=== PATIENT | female | born 1995 ===

== ENCOUNTER → 2022-09-05 | Outpatient (CLI) ==
[~2022-09-05] MED LIST: CIPR500T21 PO; IBUP200C11 PO; NORG1TAB14 PO; OMG1KC PO; SULF1TAB38 PO
== END ==
LOC: LABNPT 11:21
PROVIDERS: ATTEND Nurse Practitioner Women's Health
DX: O13.9 Gestational [pregnancy-induced] hypertension without significant proteinuria, unspecified trimester (principal); Z3A.00 Weeks of gestation of pregnancy not specified
CPT/HCPCS: 82570; 84156

== ENCOUNTER → 2022-09-24 | Outpatient (CLI) | LOC: LABNPT 12:24 | PROVIDERS: ATTEND Obstetrics & Gynecology | DX: O13.9 Gestational [pregnancy-induced] hypertension without significant proteinuria, unspecified trimester (principal); Z3A.00 Weeks of gestation of pregnancy not specified | CPT/HCPCS: 82570; 84156 ==

== ENCOUNTER → 2022-09-28 | Outpatient (CLI) | LOC: LABNPT 11:40 | PROVIDERS: ATTEND Obstetrics & Gynecology | DX: O13.9 Gestational [pregnancy-induced] hypertension without significant proteinuria, unspecified trimester (principal); Z3A.00 Weeks of gestation of pregnancy not specified | CPT/HCPCS: 82570; 84156 ==

== ENCOUNTER 2022-10-02 02:48 | Inpatient (IN) | payer OTHER ==
[2022-10-02] VITALS (75 sets, daily range): BP systolic 132–187; BP diastolic 70–106
[~2022-10-02] VITALS: Ht 162.6 cm; Wt 154.8 kg
--- NOTE | 2022-10-02 07:28 | History & Physical-OB ---
OB - Chief Complaint & HPI Date/Time Date of Admission: Date of Admission: October 02, 2022 at 07:23 Date seen by a Provider: October 02, 2022 Time Seen by a Provider: 07:25 Chief Complaint/History OB-Reason for Admission/Chief: Induction of Labor Hx : 1 Hx Para: 0 Expected Date of Delivery: Oct 20, 2022 Gestational Age in Weeks: 37 Gestational Age in Days: 3 Admission Nurse Assessment Rev: Yes History of Labs A pos antibody neg RI RPR NR HBsAg NR HIV NR GC neg GBS neg U/P ratio 0.3 Allergies and Home Medications Allergies Coded Allergies: No Known Drug Allergies (Unverified , 09/06/22) Patient Home Medication List Home Medication List Reviewed: Yes Ciprofloxacin/Ciprofloxa HCl (Ciprofloxacin ER 500 mg Tablet) 500 Mg Tbmp.24hr, 500 MG PO BID Prescribed by: KIMI JUAREZ on 09/18/15 1019 Ibuprofen (Advil) 200 Mg Capsule, 400-600 MG PO TID PRN for PAIN, (Reported) Entered as Reported by: MYRANDA GILLESPIE on 09/16/15 0820 Norgestimate-Ethinyl Estradiol (Sprintec 28 Day Tablet) 1 Each Tablet, 1 TAB PO HS, (Reported) Entered as Reported by: MARIE RAJAN on 09/16/15 0257 Tougaloo 3 Polyunsat Fatty Acids (Fish Oil 1,000 mg Capsule) 1,000 Mg Cap, 2,000 MG PO HS, (Reported) Entered as Reported by: MYRANDA GILLESPIE on 09/16/15 0820 Sulfamethoxazole/Trimethoprim (Bactrim Ds Tablet) 1 Each Tablet, 1 TAB PO DAILY PRN for ACNE, (Reported) Entered as Reported by: MYRANDA GILLESPIE on 09/16/15 0820 OB - History Hx of Present Care: Yes Ultrasounds: Normal mid trimester US Obstetrical Complications: Pre-eclampsia Medical Complications: None Delivery History Hx Blood Disorders: No Patient Past Medical History bmi >35 OB - Admission Exam Physical Exam HEENT: NCAT Heart: Rhythm Normal Lungs: Clear Abdomen: Gravid Extremities: Normal Reflexes: Normal Cervical Dilatation: 2cm Effacement: 75% Station: -1 Membranes: Intact Heart Rate: 130's Accelerations: Accelerations Present Decelerations: No Decelerations Short Term Variability: Present Field Operations Supervisor Variability: Average (6-25) Contractions on Admission: 6-10 Minutes Apart Intensity: Mild OB - Assessment/Plan/Diagnosis Assessment Assessment: induction of labor Admission Dx 27 yo @ 37 weeks Mild PreE GBS neg Admission Status: Inpatient Order (span 2 midnights) Reason for Inpatient Admission: IOL at 37 weeks Plan Plan: Induction Induction Method: MANJIT NYE DO October 02, 2022 07:28
[2022-10-02] MEDS ORDERED: MINERAL OIL 30 ML UDC TOP PRN (09:30)
[2022-10-02] MEDS ORDERED: LIDOCAINE/EPI 2% 1:200,00 (XYLOCAINE) 10 ML VIAL INJ PRN (09:30)
[2022-10-02 09:39] LABS: CLARITY,URINE CLEAR; COLOR,URINE YELLOW
[2022-10-02 09:40] LABS: BASOPHILS % (AUTO) 0 % (0-10); BILIRUBIN,URINE NEGATIVE (NEGATIVE); GLUCOSE, URINE (UA) NEGATIVE (NEGATIVE); KETONES,URINE NEGATIVE (NEGATIVE); LEUKOCYTE ESTERASE ,URINE NEGATIVE (NEGATIVE); NITRITE,URINE NEGATIVE (NEGATIVE); PROTEIN,URINE TRACE (NEGATIVE)
[2022-10-02 09:41] LABS: EOSINOPHILS # (AUTO) 0.1 10^3/uL (0.0-0.3); EOSINOPHILS % (AUTO) 1 % (0-10); HEMATOCRIT 37 % (35-52); HEMOGLOBIN 11.9 g/dL (11.5-16.0); LYMPHOCYTES # (AUTO) 2.2 10^3/uL (1.0-4.0); LYMPHOCYTES % (AUTO) 19 % (12-44); MEAN CORPUSCULAR HEMOGLOBIN 28 pg (25-34); MEAN CORPUSCULAR HGB CONC 32 g/dL (32-36); MEAN CORPUSCULAR VOLUME 88 fL (80-99); MEAN PLATELET VOLUME 10.7 fL (9.0-12.2); MONOCYTES # (AUTO) 0.6 10^3/uL (0.0-1.0); MONOCYTES % (AUTO) 5 % (0-12); NEUTROPHILS # (AUTO) 8.6 10^3/uL (1.8-7.8); NEUTROPHILS % (AUTO) 75 % (42-75); PLATELET COUNT 292 10^3/uL (130-400); WHITE BLOOD COUNT 11.5 10^3/uL (4.3-11.0)
[2022-10-02 09:42] LABS: POTASSIUM 4.5 MMOL/L (3.6-5.0)
[2022-10-02 09:43] LABS: CALCIUM 9.6 MG/DL (8.5-10.1); SMEAR SCAN COMMENT YES
[2022-10-02 09:44] LABS: TOTAL PROTEIN 6.8 GM/DL (6.4-8.2)
[2022-10-02 09:46] LABS: BILIRUBIN,TOTAL 0.2 MG/DL (0.1-1.0)
[2022-10-02 09:48] LABS: CREATININE SERUM 0.69 MG/DL (0.60-1.30)
[2022-10-02 09:51] LABS: URIC ACID 5.5 MG/DL (2.6-7.2)
[2022-10-02] MEDS ORDERED: OXYTOCIN PRE-MIX DRIP 500 ML IV ONE (09:51)
[2022-10-02] MEDS ORDERED: OXYTOCIN PRE-MIX DRIP 500 ML IV SCH (10:00)
[2022-10-02 10:03] LABS: BACTERIA,URINE MODERATE /HPF; HYALINE CASTS, URINE RARE /LPF; WBC,URINE 0-2 /HPF
[2022-10-02] MEDS: D5 LR IV SOLUTION 1,000 ML IV SCH ×2 (10:09→17:04)
[2022-10-02] MEDS ORDERED: CATHETER FLUSH 10 ML SYR IV SCH ×2 (14:00→22:00)
[2022-10-02] MEDS ORDERED: fentaNYL 2 mcg/ml BUPIVA 0.125 100 ML ONE (14:51)
[2022-10-02] MEDS ORDERED: fentaNYL INJ 100 MCG/2 ML AMP ONE ×2 (15:59→21:02)
[2022-10-02] MEDS ORDERED: BUPIVACAINE 0.25% 10 ML (SENSORCAINE) VIAL ONE (16:00)
[2022-10-02] MEDS ORDERED: NALOXONE 0.4 MG/ML 1 ML (NARCAN) VIAL IV PRN ×2 (16:45→21:15)
[2022-10-02] MEDS ORDERED: ONDANSETRON 4 MG/2 ML (SDV) Z0FRAN IV PRN (16:45)
[2022-10-02] MEDS ORDERED: fentaNYL 2 mcg/ml BUPIVA 0.125 100 ML EPI SCH (16:45)
[2022-10-02] MEDS ORDERED: diphenhydrAMINE 50 MG/ML INJ (BENADRYL) IV PRN (16:45)
[2022-10-02] MEDS ORDERED: LACTATED RINGERS 1,000 ML IV SCH (16:45)
[2022-10-02] MEDS ORDERED: LIDOCAINE 2% 20 ML (XYLOCAINE) VIAL INJ ONE (17:15)
[2022-10-02] MEDS ORDERED: MAGNESIUM SULFATE DRIP 500 ML IV ONE (19:43)
[2022-10-02] MEDS ORDERED: MAGNESIUM 2 GM/50 ML IVPB 50 ML IV ONE (19:43)
[2022-10-02] MEDS ORDERED: MAGNESIUM 4 GM/100 ML IVPB 100 ML IV ONE (19:43)
[2022-10-02] MEDS ORDERED: MAGNESIUM 2 GM/50 ML IVPB 2 GM in MAGNESIUM 4 GM/100 ML IVPB 100 ML IV ONE (19:45)
[2022-10-02] MEDS ORDERED: CALCIUM GLUC. 10% 4.65 MEQ/10 ML VIAL IV SCH (19:45)
[2022-10-02] MEDS: MAGNESIUM SULFATE DRIP 500 ML IV SCH (20:26)
[2022-10-02] MEDS ORDERED: CITRIC ACID/SOB CIT (BICITRA) 30 ML UDC ONE (20:32)
[2022-10-02] MEDS ORDERED: ceFAZolin INJECTION 2,000 MG ONE (20:32)
[2022-10-02] MEDS ORDERED: METOCLOPRAMIDE INJ 10 MG/2 ML (REGLAN) ONE (20:32)
[2022-10-02] MEDS ORDERED: FAMOTIDINE 20MG/2ML IV (PEPCID) ONE (20:33)
[2022-10-02] MEDS ORDERED: NS (IVPB) 50 ML ONE (20:38)
[2022-10-02] MEDS ORDERED: METOCLOPRAMIDE INJ 10 MG/2 ML (REGLAN) IV ONE (20:45)
[2022-10-02] MEDS ORDERED: CITRIC ACID/SOB CIT (BICITRA) 30 ML UDC PO ONE (20:45)
[2022-10-02] MEDS ORDERED: CATHETER FLUSH 10 ML SYR IV PRN (20:45)
[2022-10-02] MEDS ORDERED: FAMOTIDINE 20MG/2ML IV (PEPCID) IV ONE (20:45)
[2022-10-02] MEDS ORDERED: ceFAZolin INJECTION 2,000 MG in NS (IVPB) 50 ML IV ONE (20:45)
[2022-10-02] MEDS ORDERED: LACTATED RINGERS 1,000 ML IV ONE (21:02)
--- NOTE | 2022-10-02 21:02 | Progress Note ---
Standard Progress Note Progress Notes/Assess & Plan Date Seen by a Provider: October 02, 2022 Time Seen by a Provider: 20:35 Progress/Assessment & Plan Patient BP increased and began having some spasms in muscles about 193, so I presented to evaluate patient after I had ordered starting MgSO4 infusion. She, at that point no longer had any further symptoms like she had previously described to the nurse, however I evaluated her myself and found no clonus, 2/4 reflexes bilaterally in LE. +2-3 pitting edema. o2 sat 99%. BP was 170s/90. Due to concerns with BP elevations now, despite comfort with epidural, SVE was done and no change noted over past 6 hrs of pitocin augmentation. Due to arrest of dilatation, and worsening signs of PreE I discussed with patient proceeding with delivery which she was agreeable to do. Risk reviewed with patient in detail with family present. All questions were answered and will proceed once OR staff arrives. MANJIT CARDOZO DO October 02, 2022 21:02
[2022-10-02] MEDS ORDERED: BUPIVACAINE 0.5% 30 ML (SENSORCAINE) VIAL ONE (21:03)
[2022-10-02] MEDS ORDERED: LIDOCAINE PF 2% 5 ML (XYLOCAINE) VIAL ONE (21:03)
[2022-10-02] MEDS ORDERED: ONDANSETRON 4 MG/2 ML (SDV) Z0FRAN IVP PRN (21:15)
[2022-10-02] MEDS ORDERED: TETANUS,DIPTH,PERTUSS P/F (BOOSTRIX) 0.5 ML VIAL IM SCH (21:15)
[2022-10-02] MEDS ORDERED: MEASLES,MUMPS,RUBELLA 1 EA INJ SC SCH (21:15)
[2022-10-02] MEDS ORDERED: ONDANSETRON 4 MG/2 ML (SDV) Z0FRAN ONE (21:35)
[2022-10-02] MEDS ORDERED: OXYTOCIN PRE-MIX DRIP 1,000 ML IV ONE (21:50)
[2022-10-02] MEDS ORDERED: LABETALOL 200 MG (NORMODYNE) TAB PO ONE (22:30)
[2022-10-02] MEDS: OXYTOCIN PRE-MIX DRIP 500 ML IV SCH (23:10)
[2022-10-02] MEDS: KETOROLAC 30 MG/ML VIAL IV SCH (23:26)
[2022-10-03] VITALS (13 sets, daily range): BP systolic 103–158; BP diastolic 51–101
[2022-10-03] MEDS: HYDROcodone/APAP 5 MG/325 MG (LORTAB) TAB PO PRN ×4 (01:08→20:53)
[2022-10-03] MEDS: OXYTOCIN PRE-MIX DRIP 500 ML IV SCH (01:51)
--- NOTE | 2022-10-03 02:51 | OPERATIVE REPORT ---
PREOPERATIVE DIAGNOSES: 1. A 27-year-old G1, P0 at 37 weeks and 3 days gestation. 2. Preeclampsia with severe features. 3. Failure to progress and arrest of dilation. POSTOPERATIVE DIAGNOSES: 1. A 27-year-old G1, P0 at 37 weeks and 3 days gestation. 2. Preeclampsia with severe features. 3. Failure to progress and arrest of dilation. PROCEDURE: Primary low transverse section. SURGEON: Kevin Cardozo DO ANESTHESIA: Epidural, which was bolused. ESTIMATED BLOOD LOSS: 400 mL. URINE OUTPUT: 200 mL clear at the end of the procedure. FLUIDS: 800 mL of lactated Ringer's solution. FINDINGS: A live male weighing 6 pounds and 9 ounces and Apgars of 8 and 10. Grossly normal appearing uterus, bilateral fallopian tubes and ovaries. SPECIMEN SENT: Placenta. INDICATIONS FOR PROCEDURE: This 27-year-old female patient who had sought care in my office, it was uncomplicated with the exception of late onset preeclampsia at approximately 36 weeks. She was managed at 37 weeks', remained mild induced at 37 weeks due to preeclampsia. At induction, her blood pressures continued to worsen despite magnesium infusion, they continued to elevate into the severe criteria. She also made little to no cervical exchange administrator 6-hour period of adequate Pitocin augmentation. Due to arrest of dilation, I discussed with the patient proceeding with . Risks of the procedure were discussed with the patient in detail and after all of her questions were answered with family present, consent was obtained, the patient was taken to the operating room. OPERATIVE DESCRIPTION IN DETAIL Once in the operating room, epidural analgesia was bolused and found to be adequate. She was placed in the supine position with leftward tilt, prepped and draped in normal sterile fashion. A timeout was performed. Anesthesia was tested and then make a Pfannenstiel skin incision with a knife and carried to underlying fascia using Bovie cautery. The fascial incision extended laterally using Bovie cautery. Superior aspect of fascial incision was then grasped with Elizabeth clamps, tented up and dissected off the underlying rectus muscles. The inferior aspect of the fascial incision was then grasped with Elizabeth clamps, tented up and dissected off the underlying rectus muscles. Rectus muscles were dissected down the midline sharply, which exposed the peritoneum, which entered bluntly and extended using blunt traction. Addi ring retractor was placed in the peritoneal incision, which offers excellent lateral sidewall retraction. I identified lower uterine segment was found to be thinned out. I make a low transverse incision to the vesicouterine peritoneum and bluntly dissected this off the lower uterine segment, creating a bladder flap. I then proceeded my myotomy until membranes were visualized, at which point I extended uterine incision laterally and superiorly using bandage scissors. Amniotomy was then performed. Clear fluid was still noted. was found in vertex presentation. With gentle fundal pressure, the infant's head was elevated and delivered through the incision where the nares and oropharynx were bulb suctioned. Nuchal cord was reduced x1. Anterior and posterior shoulders were delivered. The was brought to the operative field where cord was doubly clamped and cut and infant handed off to waiting nurses in attendance. Cord blood collected. Three-vessel cord with intact placenta was delivered spontaneously thereafter. IV Pitocin was initiated to facilitate uterine contraction. Uterine fundus confirmed by bimanual massage. The uterus was then exteriorized and cleared of all endometrial clots and debris. I then proceeded to closing the uterine incision using 0 Vicryl suture in a running locked fashion. Second layer of imbricating 0 Monocryl was placed. Excellent hemostasis was noted after doing this, I then placed the uterus back in the pelvis and copiously irrigated the pelvis using normal saline. Once again, there was no active bleeding noted from any of my dissection planes. I placed Interceed antiadhesive over my low transverse incision. I removed the Addi ring retractor and then proceeded with closing the peritoneum using 3-0 Vicryl suture in a running fashion. The rectus muscles were reapproximated using 3-0 Vicryl suture in interrupted fashion. The fascia was reapproximated using 0 Vicryl suture in a running fashion. The subcutaneous tissue was reapproximated using 3-0 plain interrupted subcutaneous stitch and skin reapproximated using 4-0 Monocryl in a running subcuticular. Dermabond was applied to incision, sterile dressing with adhesive white tape. The patient tolerated the procedure well and sent to recovery area in stable condition. Lap and sponge counts were correct at the end of the procedure. Instrument counts were correct as well. Job ID: [id number] DocumentID: [id number] Dictated Date: 10/02/2022 22:04:46 Manager Labor Delivery Date: 10/03/2022 02:49:00 Dictated By: KEVNI CARDOZO DO
[2022-10-03] MEDS: KETOROLAC 30 MG/ML VIAL IV SCH ×3 (05:01→17:34)
[2022-10-03] MEDS: MAGNESIUM SULFATE DRIP 500 ML IV SCH (05:41)
[2022-10-03 06:03] LABS: BASOPHILS # (AUTO) 0.1 10^3/uL (0.0-0.1); BASOPHILS % (AUTO) 0 % (0-10); EOSINOPHILS % (AUTO) 0 % (0-10); HEMATOCRIT 29 % (35-52); HEMOGLOBIN 9.5 g/dL (11.5-16.0); LYMPHOCYTES # (AUTO) 1.8 10^3/uL (1.0-4.0); LYMPHOCYTES % (AUTO) 13 % (12-44); MEAN CORPUSCULAR HEMOGLOBIN 28 pg (25-34); MEAN CORPUSCULAR HGB CONC 32 g/dL (32-36); MEAN CORPUSCULAR VOLUME 88 fL (80-99); MONOCYTES # (AUTO) 0.9 10^3/uL (0.0-1.0); MONOCYTES % (AUTO) 6 % (0-12); NEUTROPHILS # (AUTO) 11.6 10^3/uL (1.8-7.8); NEUTROPHILS % (AUTO) 80 % (42-75); PLATELET COUNT 280 10^3/uL (130-400); WHITE BLOOD COUNT 14.5 10^3/uL (4.3-11.0)
--- NOTE | 2022-10-03 08:25 | Postpartum Progress Note ---
Note Note Day # 1 Subjective: Patient is still on MgSO4 with sequelae from this but otherwise doing ok. Catheter is still in place. Tolerating a clear diet without nausea or vomiting. Normal lochia. Pain is well controlled with oral pain medications. Objective: Physical Exam: General - Alert and oriented, no apparent distress Abdomen - Soft, appropriately tender to palpation, non-distended, fundus firm at umbilicus Extremities - no edema, negative Reuben's bilaterally Incision- c/d/i Assessment: POD 1 PLTCS Acute blood loss anemia PreE- peripartum recovering BMI > 50 Plan: Routine care. DVT prophylaxis with lovenox Encourage breast feeding. Encourage ambulation. Ferrous sulfate supplementation. Plan for discharge tomorrow if BP remains controlled and patient stable Vitals - Labs Vital Signs - I&O Vital Signs Date Time Temp Pulse Resp B/P (MAP) Pulse Ox O2 Delivery O2 Flow Rate FiO2 10/03/22 08:00 79 18 129/74 (92) 97 Room Air 10/03/22 07:00 87 18 129/76 (93) 97 Room Air 10/03/22 06:00 87 18 130/78 (95) 98 Room Air 10/03/22 05:00 36.4 86 18 120/73 (89) 97 Room Air 10/03/22 04:42 87 18 124/76 (92) 98 Room Air 10/03/22 03:00 90 18 126/80 (95) 98 Room Air 10/03/22 02:00 80 20 119/77 (91) 97 Room Air 10/03/22 01:00 87 20 103/56 (72) 97 Room Air 10/03/22 00:00 98 20 158/101 (120) 97 Room Air 10/02/22 23:17 90 20 166/104 (124) 97 Room Air 10/02/22 23:10 Room Air 10/02/22 23:10 36.3 20 158/88 (111) 98 Room Air 10/02/22 23:00 20 149/92 (111) 98 Room Air 10/02/22 23:00 Room Air 10/02/22 22:50 20 151/96 (114) 98 Room Air 10/02/22 22:45 Room Air 10/02/22 22:40 20 148/96 (113) 98 Room Air 10/02/22 22:30 Room Air 10/02/22 22:30 20 148/85 (106) 98 Room Air 10/02/22 22:20 20 155/82 (106) 98 Room Air 10/02/22 22:14 Room Air 10/02/22 22:14 36.3 20 156/84 (108) 98 Room Air 10/02/22 21:15 96 20 160/80 (106) Room Air 10/02/22 21:10 93 20 173/88 (116) 96 Room Air 10/02/22 21:05 93 20 157/84 (108) 97 Room Air 10/02/22 21:00 88 20 150/81 (104) 98 Room Air 10/02/22 20:55 97 20 155/85 (108) 98 Room Air 10/02/22 20:51 96 20 141/89 (106) 98 Room Air 10/02/22 20:45 95 20 185/105 (131) 98 Room Air 10/02/22 20:40 99 20 174/90 (118) 97 Room Air 10/02/22 20:35 93 20 175/91 (119) 98 Room Air 10/02/22 20:30 93 20 176/100 (125) 98 Room Air 10/02/22 20:25 91 20 176/91 (119) 98 Room Air 10/02/22 20:20 96 20 176/91 (119) 98 Room Air 10/02/22 20:15 101 20 175/90 (118) 98 Room Air 10/02/22 20:10 98 20 176/98 (124) 98 Room Air 10/02/22 20:02 98 20 174/100 (124) 98 Room Air 10/02/22 19:48 93 20 171/99 (123) 99 Room Air 10/02/22 19:35 86 20 175/100 (125) 98 Room Air 10/02/22 19:33 86 20 168/85 (112) 99 Room Air 10/02/22 19:17 82 20 154/93 (113) 99 Room Air 10/02/22 19:02 87 20 151/88 (109) 98 Room Air 10/02/22 18:47 82 20 145/87 (106) 98 Room Air 10/02/22 18:30 80 20 158/88 (111) 98 Room Air 10/02/22 18:15 92 20 149/78 (101) 98 Room Air 10/02/22 18:00 75 20 156/80 (105) 96 Room Air 10/02/22 17:45 88 20 155/78 (103) 96 Room Air 10/02/22 17:30 93 20 152/76 (101) 97 Room Air 10/02/22 17:15 95 20 165/84 (111) 98 Room Air 10/02/22 17:00 36.6 104 20 153/85 (107) 97 Room Air 10/02/22 16:54 90 20 153/83 (106) 97 Room Air 10/02/22 16:51 92 20 162/85 (110) 98 Room Air 10/02/22 16:48 98 20 167/93 (117) 98 Room Air 10/02/22 16:46 98 Room Air 10/02/22 16:45 36.7 90 20 166/88 (114) 98 Room Air 10/02/22 16:41 90 20 166/99 (121) 98 Room Air 10/02/22 16:39 96 20 168/101 (123) 97 Room Air 10/02/22 16:36 75 20 169/97 (121) 97 Room Air 10/02/22 16:33 83 20 164/95 (118) 97 Room Air 10/02/22 16:30 85 20 177/104 (128) 99 Room Air 10/02/22 16:26 81 20 182/106 (131) 99 Room Air 10/02/22 16:15 82 20 183/95 (124) 98 Room Air 10/02/22 16:00 76 20 172/92 (118) 98 Room Air 10/02/22 15:45 36.7 70 20 187/91 (123) 98 Room Air 10/02/22 15:30 84 20 175/100 (125) 99 Room Air 10/02/22 15:15 75 20 173/88 (116) 99 Room Air 10/02/22 15:00 85 20 143/80 (101) 98 Room Air 10/02/22 14:45 89 20 176/92 (120) 98 Room Air 10/02/22 14:30 102 20 165/104 (124) 99 Room Air 10/02/22 14:15 102 20 165/104 (124) 99 Room Air 10/02/22 14:00 82 20 144/70 (94) 98 Room Air 10/02/22 13:45 87 20 147/89 (108) 98 Room Air 10/02/22 13:30 87 20 147/89 (108) 98 Room Air 10/02/22 13:15 92 20 140/79 (99) 98 Room Air 10/02/22 13:00 80 20 140/79 (99) 98 Room Air 10/02/22 12:45 80 20 142/82 (102) 97 Room Air 10/02/22 12:30 86 20 132/75 (94) 98 Room Air 10/02/22 12:15 89 20 148/80 (102) 97 Room Air 10/02/22 11:45 84 20 153/84 (107) 98 Room Air 10/02/22 11:30 36.4 97 20 139/90 (106) 98 Room Air 10/02/22 11:15 85 20 161/98 (119) 98 Room Air 10/02/22 11:00 88 20 167/96 (119) 97 Room Air 10/02/22 10:30 36.4 87 20 162/94 (116) 97 Room Air 10/02/22 10:15 88 20 158/91 (113) 98 Room Air 10/02/22 09:45 86 20 158/92 (114) 97 Room Air 10/02/22 09:15 86 20 140/83 (102) Room Air 10/02/22 08:45 86 20 143/86 (105) 99 Room Air 10/02/22 08:30 36.9 101 18 99 Room Air I & O 10/03/22 07:00 Intake Total 2300 ml Output Total 875 ml Balance 1425 ml Labs Laboratory Tests 10/03/22 05:51: White Blood Count 14.5H, Red Blood Count 3.35L, Hemoglobin 9.5#L, Hematocrit 29L , Mean Corpuscular Volume 88, Mean Corpuscular Hemoglobin 28, Mean Corpuscular Hemoglobin Concent 32, Red Cell Distribution Width 14.9H, Platelet Count 280, Mean Platelet Volume 10.0, Immature Granulocyte % (Auto) 1, Neutrophils (%) (Auto) 80H, Lymphocytes (%) (Auto) 13, Monocytes (%) (Auto) 6, Eosinophils (%) (Auto) 0, Basophils (%) (Auto) 0, Neutrophils # (Auto) 11.6H, Lymphocytes # (Auto) 1.8, Monocytes # (Auto) 0.9, Eosinophils # (Auto) 0.0, Basophils # (Auto) 0.1, Immature Granulocyte # (Auto) 0.1 MANJIT CARDOZO DO October 03, 2022 08:25
[2022-10-03] MEDS: LABETALOL 200 MG (NORMODYNE) TAB PO SCH ×3 (09:08→22:32)
[2022-10-03] MEDS: METOCLOPRAMIDE 10 MG (REGLAN) TAB PO SCH ×5 (09:08→22:41)
[2022-10-03] MEDS: ENOXAPARIN 60 MG/0.6 ML (LOVENOX) SYR SC SCH ×2 (10:37→22:32)
[2022-10-03] MEDS: DOCUSATE SODIUM 100 MG (COLACE) CAP PO SCH ×2 (10:54→20:53)
[2022-10-03] MEDS: IBUPROFEN 600 MG (MOTRIN) TAB PO SCH (22:41)
[2022-10-04 03:47] VITALS: BP 120/73
[2022-10-04] MEDS: METOCLOPRAMIDE 10 MG (REGLAN) TAB PO SCH ×3 (03:47→16:48)
[2022-10-04] MEDS: HYDROcodone/APAP 5 MG/325 MG (LORTAB) TAB PO PRN ×3 (03:47→16:48)
[2022-10-04] MEDS: IBUPROFEN 600 MG (MOTRIN) TAB PO SCH ×3 (03:47→16:48)
--- NOTE | 2022-10-04 07:20 | Discharge Inst-Women's Service ---
Discharge Inst-Women's Serv Depart Medication/Instructions New, Converted or Re-Newed RX: Transmitted to Pharmacy Final Diagnosis POD 2 PLTCS PreEclampsia Acute blood loss anemia Problems Reviewed?: Yes Consults/Follow Up Additional Follow Up: Yes Orders/Referrals Dr. Fortune in 7-10 days and in 6 weeks Activity Activity: Activity as Tolerated Driving Instructions: No Driving for 1 Week NO SMOKING: NO SMOKING Nothing Inside Vagina: No Douching, No [place], No Tampons Diet Discharge Diet: No Restrictions Symptoms to Report to : Bleeding Excessive, Pain Increased, Fever Over 101 Degrees F, Vaginal Bleeding Increase, Questions/Concerns For Any Problems or Questions: Contact Your Physician Skin/Wound Care Infection Signs and Symptoms: Increased Redness, Foul Odor of Wound, Increased Drainage, Skin Itchy or Has a Rash, Increased Swelling, Temperature Above 101 F Operative Area Clean and Dry: Keep Incision Clean/Dry Stitches/Compa/Dermabond: Dermabond, Care of Stitches Bathing Instructions: MANJIT Newell DO Oct 04, 2022 07:20
[2022-10-04] MEDS ORDERED: ACHD5005 PO (07:22)
[2022-10-04] MEDS ORDERED: DOCU100C37 PO (07:22)
[2022-10-04] MEDS ORDERED: IBUP-844 PO (07:22)
[2022-10-04] MEDS ORDERED: LABE200T10 PO (07:22)
--- NOTE | 2022-10-04 07:37 | Anesthesia-Regional Post-Op ---
Regional Patient Condition Mental Status: Alert, Oriented x3 Circulation: Same as Pre-Op Headache: Absent Sensation: Full Recovery Motor Block: Absent Post Op Complications Complications None Follow Up Care/Instructions Patient Instructions None needed. Anesthesia/Patient Condition Patient is doing well, no complaints, stable vital signs, no apparent adverse anesthesia problems. No complications reported per nursing. NYA KNIGHT CRNA Oct 04, 2022 07:37
[2022-10-04 10:20] VITALS: BP 137/83
[2022-10-04] MEDS: LABETALOL 200 MG (NORMODYNE) TAB PO SCH ×2 (10:22→15:14)
[2022-10-04] MEDS: ENOXAPARIN 60 MG/0.6 ML (LOVENOX) SYR SC SCH (10:22)
[2022-10-04] MEDS: DOCUSATE SODIUM 100 MG (COLACE) CAP PO SCH (10:22)
--- NOTE | 2022-10-04 12:25 | Postpartum Progress Note ---
Note Note Day # 2 Subjective: Patient is without complaints. Ambulating, voiding. Tolerating a regular diet without nausea or vomiting. Normal lochia. Pain is well controlled with oral pain medications.Blood pressure stable. Breast-feeding going well no concerns Objective: l Physical Exam: General - Alert and oriented, no apparent distress Breasts are symmetrical no erythema or engorgement Abdomen - Soft, appropriately tender to palpation, non-distended, fundus firm at umbilicusIncision clean dry intact Lochia minimal Extremities - no edema, negative Reuben's bilaterally Assessment: [] post- day # 2. Status post section. Recovering well, hemodynamically stable Plan: Routine care. Encourage breast feeding. Encourage ambulation. Ferrous sulfate supplementation. Plan for discharge Today Vitals - Labs Vital Signs - I&O Vital Signs Date Time Temp Pulse Resp B/P (MAP) Pulse Ox O2 Delivery O2 Flow Rate FiO2 10/04/22 10:20 36.3 90 18 137/83 (101) 97 Room Air 10/04/22 03:47 36.3 89 18 120/73 (89) 98 Room Air 10/03/22 22:32 36.3 103 18 135/82 (99) 98 Room Air 10/03/22 17:36 36.1 114 18 132/73 (92) 97 Room Air 10/03/22 13:40 36.4 96 18 116/58 (77) 97 Room Air 10/03/22 12:45 36.5 88 18 105/51 (69) 97 Room Air I & O 10/04/22 06:59 Intake Total 1625 ml Balance 1625 ml Labs Microbiology 10/02/22 Urine Culture - Final, Complete Growth Consistent ACE LEE DO Oct 04, 2022 12:25
[2022-10-04 15:14] VITALS: BP 138/78
== END 2022-10-04 17:00 | disposition home or self-care (01) | DRG 787 ==
LOC: LDRP 07:23
PROVIDERS: ADMIT Obstetrics & Gynecology; ATTEND Obstetrics & Gynecology
PROC: 10D00Z1 Extraction of Products of Conception, Low, Open Approach (ICD-10-PCS; principal; 2022-10-02 21:21)
DX: O14.14 Severe pre-eclampsia complicating childbirth (principal); D62 Acute posthemorrhagic anemia; Z3A.37 37 weeks gestation of pregnancy; Z37.0 Single live birth; O90.81 Anemia of the puerperium; O62.0 Primary inadequate contractions
CPT/HCPCS: 36415; 80053; 81000; 82570; 83735; 84156; 84550; 85025; 86780; 86850; 86900; 86901; 87088